=== PATIENT | male | born 1990 | race Caucasian/White ===

== ENCOUNTER 2019-02-05 19:34 | Emergency (ER) | payer MEDICAID ==
[~2019-02-05] VITALS: Ht 182.9 cm; Wt 109.7 kg
[2019-02-05 19:48] VITALS: BP 160/84
[2019-02-05] MEDS ORDERED: ONDA4TAB6 PO (19:58)
[2019-02-05] MEDS ORDERED: AMOX500C2 PO (19:58)
[2019-02-05] MEDS ORDERED: HYDR-3965 PO (19:58)
== END 2019-02-05 20:10 | disposition home or self-care (01) ==
LOC: ER 19:38
DX: K02.9 Dental caries, unspecified (principal); H92.02 Otalgia, left ear; H93.12 Tinnitus, left ear; J34.89 Other specified disorders of nose and nasal sinuses; F17.200 Nicotine dependence, unspecified, uncomplicated; F12.90 Cannabis use, unspecified, uncomplicated; Z79.899 Other long term (current) drug therapy
CPT/HCPCS: 99283

== ENCOUNTER 2022-08-05 22:47 | Emergency (ER) | payer MEDICAID ==
[~2022-08-05 22:47] MED LIST: ONDA4TAB6 PO
== END 2022-08-06 00:26 | disposition left against medical advice (07) ==
LOC: ER 22:48
DX: R11.10 Vomiting, unspecified (principal); Z53.21 Procedure and treatment not carried out due to patient leaving prior to being seen by health care provider